=== PATIENT | female | born 1975 | race Caucasian/White ===

== ENCOUNTER → 2024-04-14 17:38 | Outpatient (CLI) | payer OTHER, SELFPAY ==
--- NOTE | 2024-04-14 17:41 | DI.RAD.S_ITS ---
PROCEDURE: XR KNEE LT 3V INDICATIONS: Left knee strain TECHNIQUE: 3 views of the knee were acquired. COMPARISON: None. FINDINGS: Bones: Mild medial compartment joint space narrowing without acute displaced fracture or dislocation. Small osteophytes at the patella. Soft tissues: Fcmq-[id number] joint effusion. IMPRESSION: Mild arthrosis in the patellofemoral and medial compartments. Jnnh-iz-tdvyzxpr effusion. No acute displaced fracture or dislocation. If there is high concern for further derangement, consider MRI evaluation. Dictated by: Sharan Woods M.D. on 04/15/2024 at 13:47 Approved by: Sharan Woods M.D. on 04/15/2024 at 13:48
== END ==
PROVIDERS: Referring Provider Nurse Practitioner Family; Visit Provider Nurse Practitioner Family
DX: S86.912A Strain of unspecified muscle(s) and tendon(s) at lower leg level, left leg, initial encounter (principal); M17.12 Unilateral primary osteoarthritis, left knee; M25.462 Effusion, left knee; X58.XXXA Exposure to other specified factors, initial encounter
CPT/HCPCS: 73562